=== PATIENT | female | born 1950 | race Caucasian/White ===

== ENCOUNTER → 2018-10-29 | Outpatient (CLI) | payer MEDICARE, OTHER | END | disposition home or self-care (01) | LOC: WOUND 08:29 | PROVIDERS: ATTEND Internal Medicine Infectious Disease | DX: I87.333 Chronic venous hypertension (idiopathic) with ulcer and inflammation of bilateral lower extremity (principal); L97.221 Non-pressure chronic ulcer of left calf limited to breakdown of skin; L97.811 Non-pressure chronic ulcer of other part of right lower leg limited to breakdown of skin; I11.9 Hypertensive heart disease without heart failure; I89.0 Lymphedema, not elsewhere classified; E87.6 Hypokalemia; E78.5 Hyperlipidemia, unspecified; M79.89 Other specified soft tissue disorders; M19.90 Unspecified osteoarthritis, unspecified site; E66.01 Morbid (severe) obesity due to excess calories; I25.10 Atherosclerotic heart disease of native coronary artery without angina pectoris; F41.9 Anxiety disorder, unspecified; Z68.43 Body mass index [BMI] 50.0-59.9, adult | CPT/HCPCS: 29581; 97597; G0463 ==

== ENCOUNTER → 2018-11-08 | Outpatient (CLI) | payer MEDICARE, OTHER | END | disposition home or self-care (01) | LOC: WOUND 13:55 | PROVIDERS: ATTEND Family Medicine | DX: I87.333 Chronic venous hypertension (idiopathic) with ulcer and inflammation of bilateral lower extremity (principal); L97.221 Non-pressure chronic ulcer of left calf limited to breakdown of skin; L97.811 Non-pressure chronic ulcer of other part of right lower leg limited to breakdown of skin; I11.9 Hypertensive heart disease without heart failure; I89.0 Lymphedema, not elsewhere classified; E87.6 Hypokalemia; R60.0 Localized edema; E78.5 Hyperlipidemia, unspecified; M19.90 Unspecified osteoarthritis, unspecified site; E66.01 Morbid (severe) obesity due to excess calories; I25.10 Atherosclerotic heart disease of native coronary artery without angina pectoris; F41.9 Anxiety disorder, unspecified; Z68.43 Body mass index [BMI] 50.0-59.9, adult; Z79.899 Other long term (current) drug therapy | CPT/HCPCS: 97597 ==

== ENCOUNTER 2018-11-22 08:55 | Outpatient (CLI) | payer MEDICARE, OTHER | END 2018-11-22 23:59 | disposition home or self-care (01) | LOC: WOUND 08:55 | PROVIDERS: ATTEND Family Medicine | DX: I87.333 Chronic venous hypertension (idiopathic) with ulcer and inflammation of bilateral lower extremity (principal); L97.221 Non-pressure chronic ulcer of left calf limited to breakdown of skin; L97.811 Non-pressure chronic ulcer of other part of right lower leg limited to breakdown of skin; I11.9 Hypertensive heart disease without heart failure; I89.0 Lymphedema, not elsewhere classified; R60.0 Localized edema; E87.6 Hypokalemia; E78.5 Hyperlipidemia, unspecified; M19.90 Unspecified osteoarthritis, unspecified site; I25.10 Atherosclerotic heart disease of native coronary artery without angina pectoris; F41.9 Anxiety disorder, unspecified; E66.01 Morbid (severe) obesity due to excess calories; Z68.43 Body mass index [BMI] 50.0-59.9, adult; Z79.899 Other long term (current) drug therapy | CPT/HCPCS: 29581 ==

== ENCOUNTER 2018-12-06 11:00 | Outpatient (CLI) | payer MEDICARE, OTHER | END 2018-12-06 23:59 | disposition home or self-care (01) | LOC: WOUND 11:00 | PROVIDERS: ATTEND Family Medicine | DX: I87.333 Chronic venous hypertension (idiopathic) with ulcer and inflammation of bilateral lower extremity (principal); L97.221 Non-pressure chronic ulcer of left calf limited to breakdown of skin; L97.811 Non-pressure chronic ulcer of other part of right lower leg limited to breakdown of skin; I11.9 Hypertensive heart disease without heart failure; I89.0 Lymphedema, not elsewhere classified; R60.0 Localized edema; E87.6 Hypokalemia; E78.5 Hyperlipidemia, unspecified; M19.90 Unspecified osteoarthritis, unspecified site; I25.10 Atherosclerotic heart disease of native coronary artery without angina pectoris; F41.9 Anxiety disorder, unspecified; E66.01 Morbid (severe) obesity due to excess calories; Z68.43 Body mass index [BMI] 50.0-59.9, adult; Z79.899 Other long term (current) drug therapy | CPT/HCPCS: G0463 ==

== ENCOUNTER 2019-02-18 09:27 | Outpatient (CLI) | payer MEDICARE, OTHER | END 2019-02-18 23:59 | disposition home or self-care (01) | LOC: WOUND 09:27 | PROVIDERS: ATTEND Nurse Practitioner Family | DX: I87.332 Chronic venous hypertension (idiopathic) with ulcer and inflammation of left lower extremity (principal); L97.221 Non-pressure chronic ulcer of left calf limited to breakdown of skin; L03.116 Cellulitis of left lower limb; I11.9 Hypertensive heart disease without heart failure; I89.0 Lymphedema, not elsewhere classified; E78.5 Hyperlipidemia, unspecified; E87.6 Hypokalemia; M19.90 Unspecified osteoarthritis, unspecified site; F41.9 Anxiety disorder, unspecified; I25.10 Atherosclerotic heart disease of native coronary artery without angina pectoris; Z68.43 Body mass index [BMI] 50.0-59.9, adult; Z79.899 Other long term (current) drug therapy | CPT/HCPCS: 29581; 97597; 97598 ==

== ENCOUNTER → 2019-02-21 | Outpatient (CLI) | payer MEDICARE, OTHER | END | disposition home or self-care (01) | LOC: WOUND 10:58 | PROVIDERS: ATTEND Family Medicine | DX: I87.332 Chronic venous hypertension (idiopathic) with ulcer and inflammation of left lower extremity (principal); L97.221 Non-pressure chronic ulcer of left calf limited to breakdown of skin; L03.116 Cellulitis of left lower limb; I11.9 Hypertensive heart disease without heart failure; I89.0 Lymphedema, not elsewhere classified; E78.5 Hyperlipidemia, unspecified; E87.6 Hypokalemia; M19.90 Unspecified osteoarthritis, unspecified site; F41.9 Anxiety disorder, unspecified; I25.10 Atherosclerotic heart disease of native coronary artery without angina pectoris; Z68.43 Body mass index [BMI] 50.0-59.9, adult; Z79.899 Other long term (current) drug therapy | CPT/HCPCS: 29581 ==

== ENCOUNTER → 2019-02-28 | Outpatient (CLI) | payer MEDICARE, OTHER | END | disposition home or self-care (01) | LOC: WOUND 12:57 | PROVIDERS: ATTEND Internal Medicine Cardiovascular Disease | DX: I87.332 Chronic venous hypertension (idiopathic) with ulcer and inflammation of left lower extremity (principal); L97.221 Non-pressure chronic ulcer of left calf limited to breakdown of skin; L03.116 Cellulitis of left lower limb; I11.9 Hypertensive heart disease without heart failure; I89.0 Lymphedema, not elsewhere classified; E78.5 Hyperlipidemia, unspecified; E87.6 Hypokalemia; M19.90 Unspecified osteoarthritis, unspecified site; E66.01 Morbid (severe) obesity due to excess calories; F41.9 Anxiety disorder, unspecified; I25.10 Atherosclerotic heart disease of native coronary artery without angina pectoris; B37.2 Candidiasis of skin and nail; Z68.43 Body mass index [BMI] 50.0-59.9, adult; Z79.899 Other long term (current) drug therapy | CPT/HCPCS: 29581 ==

== ENCOUNTER 2019-03-04 10:21 | Outpatient (CLI) | payer MEDICARE, OTHER | END 2019-03-04 23:59 | disposition home or self-care (01) | LOC: WOUND 10:21 | PROVIDERS: ATTEND Nurse Practitioner Family | DX: I87.332 Chronic venous hypertension (idiopathic) with ulcer and inflammation of left lower extremity (principal); L97.221 Non-pressure chronic ulcer of left calf limited to breakdown of skin; E66.01 Morbid (severe) obesity due to excess calories; I89.0 Lymphedema, not elsewhere classified; E87.6 Hypokalemia; B37.2 Candidiasis of skin and nail; F41.9 Anxiety disorder, unspecified; I25.10 Atherosclerotic heart disease of native coronary artery without angina pectoris; I11.9 Hypertensive heart disease without heart failure; E78.5 Hyperlipidemia, unspecified; M19.90 Unspecified osteoarthritis, unspecified site; L03.116 Cellulitis of left lower limb; Z68.43 Body mass index [BMI] 50.0-59.9, adult | CPT/HCPCS: 29581; 97597 ==

== ENCOUNTER 2019-03-07 11:44 | Outpatient (CLI) | payer MEDICARE, OTHER | END 2019-03-07 23:59 | disposition home or self-care (01) | LOC: WOUND 11:44 | PROVIDERS: ATTEND Internal Medicine Cardiovascular Disease | DX: I87.333 Chronic venous hypertension (idiopathic) with ulcer and inflammation of bilateral lower extremity (principal); L97.811 Non-pressure chronic ulcer of other part of right lower leg limited to breakdown of skin; L97.221 Non-pressure chronic ulcer of left calf limited to breakdown of skin; I11.9 Hypertensive heart disease without heart failure; I89.0 Lymphedema, not elsewhere classified; E78.5 Hyperlipidemia, unspecified; E87.6 Hypokalemia; M19.90 Unspecified osteoarthritis, unspecified site; E66.01 Morbid (severe) obesity due to excess calories; F41.9 Anxiety disorder, unspecified; I25.10 Atherosclerotic heart disease of native coronary artery without angina pectoris; B37.2 Candidiasis of skin and nail; Z68.43 Body mass index [BMI] 50.0-59.9, adult; Z79.899 Other long term (current) drug therapy | CPT/HCPCS: 29581 ==

== ENCOUNTER 2019-04-08 09:26 | Outpatient (CLI) | payer MEDICARE, OTHER ==
[2019-04-12] MEDS ORDERED: ALBU0.63 NEB (23:18)
[2019-04-12] MEDS ORDERED: WARF1TAB PO (23:18)
[2019-04-13] MEDS ORDERED: RIVA20TA PO (00:20)
[2019-04-13] MEDS ORDERED: LOSA100T14 PO (00:20)
[2019-04-13] MEDS ORDERED: ATOR40TA78 PO (00:20)
[2019-04-13] MEDS ORDERED: FURO80TA3 PO (00:20)
== END 2019-04-08 23:59 | disposition home or self-care (01) ==
LOC: WOUND 09:26
PROVIDERS: ATTEND Nurse Practitioner Family
DX: I87.333 Chronic venous hypertension (idiopathic) with ulcer and inflammation of bilateral lower extremity (principal); L97.811 Non-pressure chronic ulcer of other part of right lower leg limited to breakdown of skin; L97.221 Non-pressure chronic ulcer of left calf limited to breakdown of skin; I89.0 Lymphedema, not elsewhere classified; E78.5 Hyperlipidemia, unspecified; E87.6 Hypokalemia; M19.90 Unspecified osteoarthritis, unspecified site; E66.01 Morbid (severe) obesity due to excess calories; F41.9 Anxiety disorder, unspecified; I11.0 Hypertensive heart disease with heart failure; I50.23 Acute on chronic systolic (congestive) heart failure; L03.116 Cellulitis of left lower limb; I25.10 Atherosclerotic heart disease of native coronary artery without angina pectoris; B37.2 Candidiasis of skin and nail; Z68.43 Body mass index [BMI] 50.0-59.9, adult; Z79.899 Other long term (current) drug therapy
CPT/HCPCS: 97597; 97598

== ENCOUNTER 2019-10-14 17:32 | Emergency (ER) | payer MEDICARE, OTHER ==
[~2019-10-14] VITALS: Ht 157.5 cm; Wt 127.1 kg
[~2019-10-14 17:32] MED LIST: ALBU0.63 NEB; ATOR40TA78 PO; FURO80TA3 PO; LOSA100T14 PO; RIVA20TA PO; WARF1TAB2 PO
[2019-10-14 17:36] VITALS: BP 165/78
--- NOTE | 2019-10-14 17:59 | NUR ---
PT ATTACHED TO MONITORS. SON AT BEDSIDE. CALL LIGHT IN REACH. DENIES ANY NEEDS.
[2019-10-14 18:55] LABS: BASOPHILS # (AUTO) 0.02 x10^3/uL (0-0.1); BASOPHILS % (AUTO) 0 % (0-1); EOSINOPHILS # (AUTO) 0.27 x10^3/uL (0-0.4); EOSINOPHILS % (AUTO) 5 % (1-7); LYMPHOCYTES # (AUTO) 1.71 x10^3/uL (1-3.4); LYMPHOCYTES % (AUTO) 30 % (22-44); MD NO; MEAN CORPUSCULAR HEMOGLOBIN 28.7 pg (27.0-34.8); MEAN CORPUSCULAR HGB CONC 33.1 g/dL (32.4-35.8); MEAN CORPUSCULAR VOLUME 86.8 fL (80-100); MEAN PLATELET VOLUME 7.8 fL (7.4-10.4); MONOCYTES # (AUTO) 0.19 x10^3/uL (0.2-0.8); MONOCYTES % (AUTO) 3 % (2-9); NEUTROPHILS % (AUTO) 62 % (42-75); PLATELET COUNT 306 x10^3/uL (130-400); RED BLOOD COUNT 4.42 x10^6/uL (3.82-5.3); RED CELL DISTRIBUTION WIDTH 13.9 % (9.6-15.2)
[2019-10-14 19:05] LABS: ANION GAP 5 mmol/L (5-15); CALCIUM 8.9 mg/dL (8.5-10.1); CHLORIDE 111 mmol/L (98-107); CREATININE 0.88 mg/dL (0.55-1.02)
== END 2019-10-14 21:37 | disposition home or self-care (01) ==
LOC: ED 18:00
DX: I87.2 Venous insufficiency (chronic) (peripheral) (principal); R60.0 Localized edema; R06.02 Shortness of breath; I11.0 Hypertensive heart disease with heart failure; I50.9 Heart failure, unspecified
CPT/HCPCS: 36415; 71045; 80048; 83880; 85025; 93970; 99285

== ENCOUNTER → 2019-11-28 | Outpatient (CLI) | payer MEDICARE, OTHER | END | disposition home or self-care (01) | LOC: WOUND 10:57 | PROVIDERS: ATTEND Family Medicine | DX: L97.821 Non-pressure chronic ulcer of other part of left lower leg limited to breakdown of skin (principal); I89.0 Lymphedema, not elsewhere classified; E66.01 Morbid (severe) obesity due to excess calories; I10 Essential (primary) hypertension; R26.9 Unspecified abnormalities of gait and mobility; E78.5 Hyperlipidemia, unspecified; F41.9 Anxiety disorder, unspecified; I11.0 Hypertensive heart disease with heart failure; I87.2 Venous insufficiency (chronic) (peripheral); Z86.711 Personal history of pulmonary embolism | CPT/HCPCS: G0463 ==

== ENCOUNTER 2020-11-20 10:58 | Inpatient (IN) | payer MEDICARE, OTHER ==
[~2020-11-20] VITALS: Ht 154.9 cm; Wt 128.5 kg
[~2020-11-20 10:58] MED LIST changes: +GABA300C PO; +HYDR-2214 PO
--- NOTE | 2020-11-20 11:10 | NUR ---
PT STACEY FROM HOME FOR C/O L-LEG & GROIN PAIN. PER EMS PT LAID DOWN ON COUCH LAST NIGHT AND COULE NOT GET UP THIS MORNING, SO SHE CALLED 911. PT AXOX4, PT CONNECTED TO MONITORS, CALL LIGHT WITHIN REACH. PT SKIN/EDEMA IS NORMAL/BASELINE FOR HER.
--- NOTE | 2020-11-20 11:12 | NUR ---
PA AT BS
--- NOTE | 2020-11-20 11:29 | NUR ---
XRAY AT BS
[2020-11-20 11:52] LABS: BASOPHILS % (AUTO) 1 % (0-1); EOSINOPHILS % (AUTO) 3 % (1-7); LYMPHOCYTES % (AUTO) 22 % (22-44); MEAN CORPUSCULAR HEMOGLOBIN 28.8 pg (27.0-34.8); MEAN CORPUSCULAR HGB CONC 33.7 g/dL (32.4-35.8); MEAN PLATELET VOLUME 8.6 fL (7.4-10.4); MONOCYTES % (AUTO) 7 % (2-9); NEUTROPHILS % (AUTO) 67 % (42-75); PLATELET COUNT 95 x10^3/uL (130-400); RED BLOOD COUNT 4.15 x10^6/uL (3.82-5.3)
[2020-11-20 12:04] LABS: ALANINE AMINOTRANSFERASE 15 U/L (12-78); ALBUMIN 3.2 g/dL (3.4-5.0); CALCIUM 9.1 mg/dL (8.5-10.1); CREATININE 0.74 mg/dL (0.55-1.02)
[2020-11-20 12:08] LABS: ALKALINE PHOSPHATASE 78 U/L (45-117); BILIRUBIN,TOTAL 0.6 mg/dL (0.2-1.0); TOTAL PROTEIN 6.9 g/dL (6.4-8.2)
[2020-11-20 12:11] LABS: ANION GAP 5 mmol/L (5-15); CHLORIDE 111 mmol/L (98-107)
--- NOTE | 2020-11-20 12:52 | NUR ---
ERP AT BS FOR EVAL
[2020-11-20] MEDS ORDERED: SODIUM CHLORIDE FLUSH 10ML SYR IVF PRN (14:00)
[2020-11-20 15:56] VITALS: BP 139/79
[2020-11-20] MEDS: PIPERACILLIN/TAZO 2.25 GM in DEXTROSE 5% 50 ML IV SCH ×2 (17:16→23:45)
[2020-11-20] MEDS: FUROSEMIDE 20 MG/2 ML IV SCH (17:17)
[2020-11-20] MEDS: ACETAMINOPHEN 325 MG TABLET PO PRN ×2 (17:17→23:53)
[2020-11-20] MEDS: ATORVASTATIN 40 MG TABLET PO SCH (19:58)
[2020-11-20] MEDS: MELATONIN 3 MG TABLET PO PRN (20:29)
[2020-11-20] MEDS ORDERED: OXYcodone IR 5MG TABLET PO PRN (20:30)
[2020-11-20 20:55] VITALS: BP 119/76
[2020-11-21 00:49] VITALS: BP 98/63
[2020-11-21] MEDS: OXYcodone IR 5MG TABLET PO PRN ×4 (03:46→22:41)
[2020-11-21] MEDS: PIPERACILLIN/TAZO 2.25 GM in DEXTROSE 5% 50 ML IV SCH ×3 (05:45→18:17)
[2020-11-21 06:13] LABS: BASOPHILS % (AUTO) 1 % (0-1); EOSINOPHILS % (AUTO) 4 % (1-7); LYMPHOCYTES % (AUTO) 24 % (22-44); MEAN CORPUSCULAR HEMOGLOBIN 29.2 pg (27.0-34.8); MEAN CORPUSCULAR HGB CONC 34.1 g/dL (32.4-35.8); MEAN PLATELET VOLUME 8.8 fL (7.4-10.4); MONOCYTES % (AUTO) 8 % (2-9); NEUTROPHILS % (AUTO) 63 % (42-75); PLATELET COUNT 94 x10^3/uL (130-400); RED BLOOD COUNT 3.61 x10^6/uL (3.82-5.3); RED CELL DISTRIBUTION WIDTH 15.1 % (9.6-15.2)
[2020-11-21 06:20] LABS: ANION GAP 3 mmol/L (5-15); CALCIUM 8.3 mg/dL (8.5-10.1); CHLORIDE 112 mmol/L (98-107); CREATININE 0.81 mg/dL (0.55-1.02)
[2020-11-21 07:05] VITALS: BP 115/72
[2020-11-21] MEDS: RIVAROXABAN 20 MG TABLET PO SCH (08:07)
[2020-11-21] MEDS: POTASSIUM CHLORIDE 20 MEQ PACKET PO SCH (08:07)
[2020-11-21] MEDS: ACETAMINOPHEN 325 MG TABLET PO PRN ×2 (08:07→20:46)
[2020-11-21] MEDS: FUROSEMIDE 20 MG/2 ML IV SCH ×2 (08:08→16:59)
[2020-11-21 12:50] VITALS: BP 116/71
[2020-11-21] MEDS ORDERED: OXYcodone IR 5MG TABLET ONE (16:28)
[2020-11-21] MEDS: GABAPENTIN 100 MG CAPSULE PO PRN (17:17)
[2020-11-21 18:30] VITALS: BP 114/61
[2020-11-21] MEDS: ATORVASTATIN 40 MG TABLET PO SCH (20:46)
[2020-11-21] MEDS: MELATONIN 3 MG TABLET PO PRN (20:46)
[2020-11-22] MEDS: PIPERACILLIN/TAZO 2.25 GM in DEXTROSE 5% 50 ML IV SCH ×4 (00:24→18:07)
[2020-11-22] MEDS: GABAPENTIN 100 MG CAPSULE PO PRN ×3 (00:28→16:32)
[2020-11-22 02:50] VITALS: BP 120/75
[2020-11-22 05:50] LABS: BASOPHILS % (AUTO) 0 % (0-1); EOSINOPHILS % (AUTO) 5 % (1-7); LYMPHOCYTES % (AUTO) 26 % (22-44); MEAN CORPUSCULAR HEMOGLOBIN 28.8 pg (27.0-34.8); MEAN CORPUSCULAR HGB CONC 33.5 g/dL (32.4-35.8); MEAN PLATELET VOLUME 8.1 fL (7.4-10.4); MONOCYTES % (AUTO) 8 % (2-9); NEUTROPHILS % (AUTO) 61 % (42-75); PLATELET COUNT 146 x10^3/uL (130-400); RED BLOOD COUNT 3.74 x10^6/uL (3.82-5.3)
[2020-11-22 06:04] LABS: CHLORIDE 110 mmol/L (98-107)
[2020-11-22 06:14] LABS: ANION GAP 3 mmol/L (5-15); CALCIUM 8.8 mg/dL (8.5-10.1); CREATININE 0.84 mg/dL (0.55-1.02)
[2020-11-22] MEDS: OXYcodone IR 5MG TABLET PO PRN ×3 (06:27→18:08)
[2020-11-22 07:06] VITALS: BP 109/71
[2020-11-22] MEDS: FUROSEMIDE 20 MG/2 ML IV SCH ×2 (07:46→18:07)
[2020-11-22] MEDS: RIVAROXABAN 20 MG TABLET PO SCH (07:46)
[2020-11-22] MEDS: ACETAMINOPHEN 325 MG TABLET PO PRN ×3 (07:47→16:32)
[2020-11-22] MEDS: POTASSIUM CHLORIDE 20 MEQ PACKET PO SCH (07:47)
[2020-11-22 16:01] VITALS: BP 110/82
[2020-11-22 18:57] VITALS: BP 137/80
[2020-11-22] MEDS: ATORVASTATIN 40 MG TABLET PO SCH (20:22)
[2020-11-23] MEDS: OXYcodone IR 5MG TABLET PO PRN ×3 (00:17→11:59)
[2020-11-23] MEDS: PIPERACILLIN/TAZO 2.25 GM in DEXTROSE 5% 50 ML IV SCH ×3 (00:17→11:59)
[2020-11-23 01:32] VITALS: BP 134/79
[2020-11-23] MEDS: ACETAMINOPHEN 325 MG TABLET PO PRN ×3 (05:28→13:37)
[2020-11-23] MEDS: FUROSEMIDE 20 MG/2 ML IV SCH (06:33)
[2020-11-23 06:47] VITALS: BP 119/66
[2020-11-23] MEDS: POTASSIUM CHLORIDE 20 MEQ PACKET PO SCH (09:40)
[2020-11-23] MEDS: GABAPENTIN 100 MG CAPSULE PO PRN (09:40)
[2020-11-23] MEDS: RIVAROXABAN 20 MG TABLET PO SCH (09:41)
[2020-11-23] MEDS ORDERED: FURO40TA6 PO (11:10)
[2020-11-23] MEDS ORDERED: AMOX1TAB64 PO (11:10)
[2020-11-23] MEDS ORDERED: OXYC-305 PO ×2 (11:10)
[2020-11-23] MEDS ORDERED: OXYC-302 PO (11:55)
[2020-11-23 13:23] VITALS: BP 130/76
[2020-11-23 16:51] VITALS: BP 108/67
== END 2020-11-23 13:53 | DRG 603 ==
LOC: ED 11:28 → EDIP 13:53 → 4NE 14:45
PROVIDERS: ADMIT Hospitalist; ATTEND Family Medicine
DX: L03.116 Cellulitis of left lower limb (principal); Z68.43 Body mass index [BMI] 50.0-59.9, adult; D68.59 Other primary thrombophilia; L03.115 Cellulitis of right lower limb; E66.01 Morbid (severe) obesity due to excess calories; E78.5 Hyperlipidemia, unspecified; G89.29 Other chronic pain; I89.0 Lymphedema, not elsewhere classified; M16.12 Unilateral primary osteoarthritis, left hip; R62.7 Adult failure to thrive; Z86.718 Personal history of other venous thrombosis and embolism; Z86.711 Personal history of pulmonary embolism; Z79.01 Long term (current) use of anticoagulants; R26.2 Difficulty in walking, not elsewhere classified; R53.81 Other malaise; I10 Essential (primary) hypertension; J98.4 Other disorders of lung
CPT/HCPCS: 36415; 71045; 80048; 80053; 83880; 85025; 93005; 93970; G0378; J2543; J1940